=== PATIENT | female | born 1945 | race Hispanic/Latino ===

== ENCOUNTER 2017-01-11 10:45 | Outpatient (CLI) | payer MEDICARE ==
--- NOTE | 2017-01-11 14:13 | Mammography Report ---
LEFT DIGITAL DIAGNOSTIC MAMMOGRAM WITH CAD: 01/11/17 CLINICAL: History of breast cancer six months status post left partial mastectomy and radiation therapy. COMPARISON:None available. FINDINGS: The breast is mostly fatty with benign upper outer postsurgical scar. Minimal skin thickening of the left breast. No mass, suspicious architectural distortion or suspicious calcifications. IMPRESSION: No mammographic evidence of malignancy. Benign postsurgical changes. BI-RADS CATEGORY: 2 -- Benign RECOMMENDATION: Routine mammographic screening . ACR BI-RADS MAMMOGRAPHIC CODES: 0 = Needs additional imaging evaluation; 1 = Negative; 2 = Benign; 3 = Probably benign; 4 = Suspicious; 5 = Malignant; 6 = Known biopsy-proven malignancy COMMENT: 1. Dense breast tissue, i.e., adenosis, fibrocystic changes, etc., may obscure an underlying neoplasm. 2. Approximately 10% of cancers are not detected with mammography. 3. A negative mammography report should not delay biopsy if a clinically suspicious mass is present. COMMENT: Patient follow-up letters are generated by our [employer] application.
== END 2017-01-11 10:46 | disposition home or self-care (01) ==
LOC: SPVWC 10:45
PROVIDERS: ATTEND Surgery
DX: R92.8 Other abnormal and inconclusive findings on diagnostic imaging of breast (principal); Z85.3 Personal history of malignant neoplasm of breast; Z80.3 Family history of malignant neoplasm of breast; Z90.12 Acquired absence of left breast and nipple
CPT/HCPCS: G0206-LT

== ENCOUNTER 2017-05-10 10:37 | Outpatient (CLI) | payer MEDICARE ==
--- NOTE | 2017-05-10 11:52 | Mammography Report ---
BILATERAL DIGITAL SCREENING MAMMOGRAM WITH CAD: 05/10/17 10:37:00 CLINICAL: Routine screening.Breast cancer survivor status post left partial mastectomy and radiation therapy in 2017. COMPARISON:01/11/17 left mammogram. FINDINGS: The right breast is almost entirely fatty in the left breast is heterogeneously dense. Left upper outer postsurgical scar. Slightly greater moderate skin thickening of the left breast. Surgical clips in the left axilla. No mass, suspicious architectural distortion or suspicious calcifications. IMPRESSION: No mammographic evidence of malignancy. BI-RADS CATEGORY: 2 -- Benign RECOMMENDATION: Routine mammographic screening in one year. COMMENT: Patient follow-up letters are generated via our [employer] application.
== END 2017-05-10 10:38 | disposition home or self-care (01) ==
LOC: SPVWC 10:37
PROVIDERS: ATTEND Surgery
DX: Z12.31 Encounter for screening mammogram for malignant neoplasm of breast (principal); Z90.12 Acquired absence of left breast and nipple
CPT/HCPCS: 77067

== ENCOUNTER 2018-05-16 10:30 | Outpatient (CLI) | payer MEDICARE ==
--- NOTE | 2018-05-16 11:17 | Mammography Report ---
BILATERAL DIGITAL SCREENING MAMMOGRAM WITH CAD: 05/16/18 10:30:00 CLINICAL: Routine screening.Breast cancer survivor status post left mastectomy with radiation therapy in 2017. COMPARISON:05/10/17 FINDINGS: The right breast is mostly fatty and the left breast is heterogeneously dense. However, decreased density and skin thickening of the left breast compared to the last exam. The left breast is smaller than the right with benign upper outer postsurgical scar. No mass, suspicious architectural distortion or suspicious calcifications. IMPRESSION: No mammographic evidence of malignancy. BI-RADS CATEGORY: 2 -- Benign RECOMMENDATION: Routine mammographic screening in one year. COMMENT: Patient follow-up letters are generated via our [employer] application.
== END 2018-05-16 10:31 | disposition home or self-care (01) ==
LOC: SPVWC 10:30
PROVIDERS: ATTEND Surgery
DX: Z12.31 Encounter for screening mammogram for malignant neoplasm of breast (principal)
CPT/HCPCS: 77067